=== PATIENT | female | born 1995 | race Two or more races ===

== ENCOUNTER 2024-11-12 15:02 | Day surgery (SDC) | payer BC ==
[2024-11-12 15:37] VITALS: BMI 30.2
[2024-11-12] MEDS ORDERED: hydrALAZINE 20 MG/ML VIAL SLOW IVP PRN (16:32)
[2024-11-12 18:12] LABS: ALT (SGPT) 208 U/L (Less than 34); AST (SGOT) 115 U/L (11-34); Albumin 2.9 g/dL (3.1-4.5); Alkaline Phosphatase 292 U/L (40-110); Anion Gap 16 mmol/L (10-20); BUN (Urea Nitrogen) 4 mg/dL (7.0-18.7); Bilirubin, Total 0.8 mg/dL (0.3-1.2); Calc. Creatinine Clearance 179 mL/min (70-130); Calcium 9.3 mg/dL (7.8-10.44); Carbon Dioxide 20 mmol/L (22-29); Chloride 106 mmol/L (98-107); Estimated GFR 128; Globulin 4.1 g/dL (2.4-3.5); Glucose 79 mg/dL (70-105); Potassium 3.9 mmol/L (3.5-5.1); Sodium 138 mmol/L (136-145)
== END 2024-11-12 17:12 | disposition home or self-care (01) ==
LOC: CSHLD/OP 15:02
PROVIDERS: ATTEND Family Medicine
DX: O26.643 Intrahepatic cholestasis of pregnancy, third trimester (principal); O99.613 Diseases of the digestive system complicating pregnancy, third trimester; K21.9 Gastro-esophageal reflux disease without esophagitis; K80.20 Calculus of gallbladder without cholecystitis without obstruction; Z3A.36 36 weeks gestation of pregnancy
CPT/HCPCS: 36415; 80053; 82239

== ENCOUNTER 2024-11-18 18:00 | Inpatient (IN) | payer BC ==
[~2024-11-18 18:00] MED LIST: Bupivacaine 0.25% HCL 30 ML VIAL ONE; ePHEDrine Sulfate 50 MG/10 ML VIAL ONE
[2024-11-18] MEDS ORDERED: Promethazine HCl 25 MG/ML VIAL IM PRN (21:16)
[2024-11-18] MEDS ORDERED: Tranexamic Acid 1,000 MG/10 ML VIAL IVP PRN (21:16)
[2024-11-18] MEDS ORDERED: Methylergonovine 0.2 MG/ML VIAL IM PRN (21:16)
[2024-11-18] MEDS ORDERED: Diphenoxylate HCl/Atropine Tablet PO PRN (21:16)
[2024-11-18] MEDS ORDERED: hydrALAZINE 20 MG/ML VIAL SLOW IVP PRN (21:16)
[2024-11-18] MEDS ORDERED: Ondansetron PF 4 MG/2 ML Vial IVP PRN (21:16)
[2024-11-18] MEDS ORDERED: Carboprost 250 MCG/ML AMP IM PRN (21:16)
[2024-11-18] MEDS ORDERED: Lidocaine 1% (PF) 30 ML VIAL SC PRN (21:16)
[2024-11-18] MEDS ORDERED: Acetaminophen 500 MG TAB PO PRN (21:16)
[2024-11-18 21:17] VITALS: BMI 30.2
[2024-11-18] MEDS ORDERED: Oxytocin 30 units/NS 500 ML 500 ML IV SCH (21:30)
[2024-11-18 22:33] LABS: #Basophils 0.06 10x3/uL (0.0-0.2); #Monocytes 1.18 10x3/uL (0.0-1.1); #Neutrophils 6.52 10x3/uL (1.5-8.4); %Basophils 0.6 % (0.0-2.0); %Eosinophils 0.9 % (0.0-6.0); %Lymphocytes 26.7 % (18.0-47.0); %Monocytes 10.9 % (0.0-10.0); %Neutrophils 60.3 % (40.0-75.0); Hematocrit 37.3 % (34.9-44.5); Hemoglobin 12.7 g/dL (12.0-15.5); Mean Corpuscular Hemoglobin 29.2 pg (27.0-33.0); Mean Corpuscular Volume 85.7 fL (81.6-98.3); Mean Platelet Volume 10.5 fL (7.4-10.4); Platelet Count 335 10x3/uL (150-450); RBC Distribution Width 14.2 % (11.5-14.5); Red Blood Cell (RBC) Count 4.35 10x6/uL (3.90-5.03); White Blood Cell (WBC) Count 10.82 10x3/uL (3.5-10.5)
[2024-11-18 22:39] LABS: ALT (SGPT) 319 U/L (Less than 34); AST (SGOT) 167 U/L (11-34); Albumin 2.9 g/dL (3.1-4.5); Alkaline Phosphatase 348 U/L (40-110); Anion Gap 15 mmol/L (10-20); BUN (Urea Nitrogen) 5 mg/dL (7.0-18.7); Bilirubin, Total 0.8 mg/dL (0.3-1.2); Calc. Creatinine Clearance 191 mL/min (70-130); Calcium 8.9 mg/dL (7.8-10.44); Carbon Dioxide 19 mmol/L (22-29); Chloride 106 mmol/L (98-107); Estimated GFR 130; Globulin 3.8 g/dL (2.4-3.5); Glucose 95 mg/dL (70-105); Protein, Total 6.7 g/dL (6.0-8.3); Sodium 136 mmol/L (136-145)
[2024-11-18 22:57] LABS: Syphilis Antibody Nonreactive (Nonreactive); Syphilis Antibody Index 0.06 S/CO (<1.00 Non-Reactive)
[2024-11-18 22:58] LABS: HBsAg Index 0.16 S/CO (0-0.99); Hep B Surf Ag - L&D Non-Reactive S/CO (NonReactive)
[2024-11-18] MEDS: Misoprostol 100 MCG TAB VAG SCH (23:06)
[2024-11-19 01:13] LABS: INR-International Normal Ratio 0.9; PTT 23.3 sec (22.0-33.0); Prothrombin Time 9.9 sec (9.5-12.1)
[2024-11-19 02:26] LABS: Creatinine, Urine 21.69 mg/dL (16.00-327.00)
[2024-11-19] MEDS: fentaNYL 2 mcg/Ropivacaine 0.2% Epidural 100 ML CADD EPIDURAL SCH (13:15)
[2024-11-19] MEDS ORDERED: ePHEDrine Sulfate 50 MG/10 ML VIAL SLOW IVP PRN (13:20)
[2024-11-19] MEDS ORDERED: diphenhydrAMINE 50 MG/ML VIAL IVP PRN (13:20)
[2024-11-19] MEDS ORDERED: Promethazine HCl 25 MG/ML VIAL IM PRN (13:20)
[2024-11-19] MEDS ORDERED: Ondansetron PF 4 MG/2 ML Vial IVP PRN ×2 (13:20→23:53)
[2024-11-19] MEDS ORDERED: Naloxone HCl 0.4 mg/ml Vial IVP PRN ×2 (13:20)
[2024-11-19] MEDS ORDERED: Moisturizing Cream (Eucerin) 113 GM JAR TOP PRN (13:20)
[2024-11-19] MEDS ORDERED: Communication Order-Pharmacy FS SCH (13:30)
[2024-11-19] MEDS ORDERED: Lactated Ringer's 500 ML IV PRN (13:31)
[2024-11-19] MEDS: Calcium Carbonate 500 MG ChewTAB PO PRN (14:16)
[2024-11-19] MEDS: Oxytocin 30 units/NS 500 ML 500 ML IV SCH (19:28)
[2024-11-19 19:51] LABS: Analyzer IN Cardio CS NICU; RapidComm Collect By RN
[2024-11-19 19:52] LABS: Analyzer IN Cardio CS NICU; RapidComm Collect By RN; pH (Cord, venous) 7.344 (7.250-7.350)
[2024-11-19] MEDS: Ibuprofen 800 MG TAB PO PRN (22:01)
[2024-11-19] MEDS: Misoprostol 200 MCG TAB PR PRN (22:01)
[2024-11-19] MEDS: Lactated Ringer's 1,000 ML IV SCH (22:18)
[2024-11-19] MEDS: fentaNYL/Ropivacaine Epidural 100 ML ONE (22:19)
[2024-11-19] MEDS ORDERED: Benzocaine-Menthol 82.5 ML CAN TOP PRN (23:53)
[2024-11-19] MEDS ORDERED: Lanolin Ointment 7 GM TUBE TOP PRN (23:53)
[2024-11-19] MEDS ORDERED: Milk Of Magnesia 30 ML UDCUP PO PRN (23:53)
[2024-11-19] MEDS ORDERED: Methylergonovine 0.2 MG/ML VIAL IM PRN (23:53)
[2024-11-19] MEDS ORDERED: Preparation H Ointment 28 GM TUBE PR PRN (23:53)
[2024-11-19] MEDS ORDERED: Bisacodyl 10 MG SUPP PR PRN (23:53)
[2024-11-19] MEDS ORDERED: diphenhydrAMINE 25 MG CAP PO PRN (23:53)
[2024-11-19] MEDS ORDERED: hydrALAZINE 20 MG/ML VIAL SLOW IVP PRN (23:53)
[2024-11-20] MEDS: Acetaminophen 325 MG TAB PO PRN (00:06)
[2024-11-20] MEDS: Docusate 100 MG CAP PO SCH ×2 (04:49→19:24)
[2024-11-20 05:07] LABS: #Basophils 0.07 10x3/uL (0.0-0.2); #Eosinophils 0.03 10x3/uL (0.0-0.5); #Neutrophils 17.03 10x3/uL (1.5-8.4); %Basophils 0.3 % (0.0-2.0); %Eosinophils 0.1 % (0.0-6.0); %Lymphocytes 14.4 % (18.0-47.0); %Monocytes 9.7 % (0.0-10.0); %Neutrophils 74.8 % (40.0-75.0); Mean Corpuscular HGB CONC 33.3 g/dL (32.0-36.0); Mean Corpuscular Hemoglobin 29.2 pg (27.0-33.0); Mean Corpuscular Volume 87.6 fL (81.6-98.3); Mean Platelet Volume 10.3 fL (7.4-10.4); Platelet Count 323 10x3/uL (150-450); RBC Distribution Width 14.1 % (11.5-14.5); Red Blood Cell (RBC) Count 4.11 10x6/uL (3.90-5.03); White Blood Cell (WBC) Count 22.77 10x3/uL (3.5-10.5)
[2024-11-20 05:22] LABS: ALT (SGPT) 262 U/L (Less than 34); AST (SGOT) 150 U/L (11-34); Albumin 2.4 g/dL (3.1-4.5); Alkaline Phosphatase 279 U/L (40-110); Anion Gap 10 mmol/L (10-20); BUN (Urea Nitrogen) 4 mg/dL (7.0-18.7); Bilirubin, Total 0.9 mg/dL (0.3-1.2); Calc. Creatinine Clearance 171 mL/min (70-130); Carbon Dioxide 21 mmol/L (22-29); Chloride 109 mmol/L (98-107); Estimated GFR 126; Globulin 3.6 g/dL (2.4-3.5); Glucose 86 mg/dL (70-105); Sodium 136 mmol/L (136-145)
[2024-11-20] MEDS: Ibuprofen 800 MG TAB PO SCH (05:41)
[2024-11-20] MEDS ORDERED: HYDROcodone/Acetaminophen 5/325 mg Tablet PO PRN (13:21)
[2024-11-20] MEDS: Boostrix 0.5 ML (Tdap) VIAL (>/=7 yrs of age) IM ONE (19:23)
[2024-11-20] MEDS: Ferrous Sulfate 325 MG TAB PO SCH (19:24)
[2024-11-20] MEDS: Prenatal Vitamin 1 TAB PO SCH (19:24)
[2024-11-21 07:52] VITALS: BP 110/70; TEMP 97.5
== END 2024-11-21 14:35 | disposition home or self-care (01) | DRG 807 ==
LOC: CSHLD 21:06 → CSHPP 11-19 22:40
PROVIDERS: ADMIT Family Medicine; ATTEND Family Medicine
PROC: 10E0XZZ Delivery of Products of Conception, External Approach (ICD-10-PCS; principal; 2024-11-19)
PROC: 0KQM0ZZ Repair Perineum Muscle, Open Approach (ICD-10-PCS; 2024-11-19)
DX: O26.643 Intrahepatic cholestasis of pregnancy, third trimester (principal); Z37.0 Single live birth; Z3A.37 37 weeks gestation of pregnancy; O76 Abnormality in fetal heart rate and rhythm complicating labor and delivery; O70.1 Second degree perineal laceration during delivery
CPT/HCPCS: 36415; 51702; 80053; 82239; 82570; 82805; 82977; 83010; 83615; 84156; 85025; 85610; 85730; 86780; 86850; 86900; 86901; 87340; J0665; J2590; S3620